=== PATIENT | female | born 1975 | race Caucasian/White ===

== ENCOUNTER 2018-01-29 16:25 | Emergency (ER) | payer MEDICARE, MEDICAID, SELFPAY ==
[2018-01-29 16:29] VITALS: BP 113/74; PULSE 105; RESP 20; TEMP 37; O2SAT 99
--- NOTE | 2018-01-29 16:35 | W.ED.GENAD ---
Discharge Plan Disposition Patient Disposition: STILL A PATIENT Condition: Good Discharge Details Chief Complaint: PsychEval Clinical Impression: Depression, major Primary Care Provider: JAMESON LOMELI ED Provider: Yg Hansen Home Meds and New Rx's Prescriptions: No Action celecoxib [Celebrex] 200 mg Capsule 20 mg PO DAILY RF: 0 gabapentin 600 mg Tablet 600 mg PO TID RF: 0 clonazepam 0.5 mg Tablet 1 tab PO HS PRNRF: 0 hydroxyzine HCl 50 mg Tablet 50 mg PO BID PRNRF: 0 valacyclovir 500 mg Tablet 2 tab PO BID PRNRF: 0 simvastatin 20 mg Tablet 20 mg PO HS RF: 0 lisinopril-hydrochlorothiazide 20-25 mg Tablet 1 tab PO DAILY RF: 0 duloxetine 60 mg Capsule,Delayed Release(Dr/Ec) 60 mg PO BID RF: 0 omeprazole 20 mg Tablet,Delayed Release (Dr/Ec) 20 mg PO DAILY RF: 0 liraglutide [Victoza 3-Barrera] 0.6 mg/0.1 mL (18 mg/3 mL) Pen Injector 1.2 mg subcut DAILY RF: 0 Medical Decision Making <Kennedy Carias MD - Last Filed: 01/29/18 19:26> [facility] Narrative Medical decision making narrative: This is a 42-year-old female who has 1 week of worsening mood disorder and now suicidal ideation. She has mildly dry mucous membranes is able to take liquids by mouth. Her exam is otherwise notable for flat affect and reports of suicidal ideation. Medical screening examination performed and screening laboratories obtained. Patient is medically stable for further evaluation by psychiatry. She reports a history of admissions to [facility], [facility] as well as [facility]. Urinalysis is notable for elevated specific gravity consistent with dehydration. Her laboratories are otherwise reassuring. She is taking liquids by mouth and hydrating. She does not require further medical intervention. At the time of this dictation, patient is awaiting final disposition and placement. Patient was signed out to Dr. Denise pending mental health placement. Please see her note regarding the patient's final disposition. <Vesna Denise DO - Last Filed: 01/30/18 08:15> [facility] Narrative Medical decision making narrative: 01/29/[address] Carias's note for initial presentation, exam and plan. [Sign out comment was not left in chart by Dr. Carias] Patient is a 42-year-old female with a history of anxiety and depression who presents for depressed mood and suicidality for the past week. She has multiple stressors at home, including recent breakup with her with whom she still lives. She reported there are guns in the home. She denied a specific plan. She denied homicidal ideation. Patient was medically cleared. Plan upon endorsement was follow up with [facility] regarding placement. 2139 -- D/w care plan with team rhiannon. [facility] has a bed available but not for transfer tonight. There is also no sitter available so pt will stay in the ED tonight. Gabby from [facility] will be back in the am to resume plan for transfer/placement. 2199 -- Pt is requesting her regular evening meds. Will go over these and discuss pt and order what is appropriate. 2219 --patient states her evening medication would be clonazepam, duloxetine, gabapentin, hydroxyzine, and lisinopril/HCTZ. She is unsure of her dose of clonazepam. Will order a dose of 0.5 mg. She is unsure of her dose of lisinopril/HCTZ, will order the lowest dose of both as her blood pressure was 113/74 on last check. I discussed that this is a significant amount of medications which can cause drowsiness but she states she takes all of these medications at nighttime regularly. She states she does not need her Victoza. Her glucose is 125 on labs. 01/30/18 0800 --no events overnight. Pt has been resting comfortably. Case endorsed to Dr. Hansen to f/u with [facility] this morning regarding placement. <Yg Hansen DO - Last Filed: 01/30/18 11:08> [facility] Narrative Medical decision making narrative: The case is signed out to me by my colleague Dr. Denise. Patient presented here to the emergency department for suicidal ideations and plan. She does not reflect a specific plan but does state when asked if she has a plan that I have guns in my house. Maybe I could use those. Patient has been in the emergency department for the past 18 hours. Multiple attempts have been made to transfer the patient to a psychiatric facility. The only place that is currently open and accepting his daphney, however on her most recent assessment by her mental health advisors the patients history and clinical scenario still has not even been seen or assessed by that facility. Currently the emergency department is very flexible, multiple people in the lobby. For patient safety, a lack of dedicated staff for continued observation of the patient, in the current clinical scenario in the ED, I do feel that it is best to admit the patient for the time being. I discussed the case with Dr. Mcneill, and he has accepted the patient for admission. I have extensively reviewed the treatment plan with the patient. I have addressed all patient concerns at this time. I have also discussed the plan with the admitting physician and they agree with the current assessment and plan and have agreed to assume responsibility for the patient. All parties demonstrate verbal understanding and agreement with our assessment and plan at this time. HPI - General Adult <Kennedy Carias MD - Last Filed: 01/29/18 19:26> General Mode of arrival: ambulatory. Date/Time Provider Initiated Documentation: 01/29/18 16:26. Limitations to Documentation: no limitations. Information obtained by: patient. History of Present Illness 42 year old F presents to the emergency department with the chief complaint of Mood disorder, described as severe, Quality is described as constant, Patient started experiencing this day(s) and it has been constant. No relieving factors improve symptom(s), Other factors that worsen symptoms (Social stressors) . Patient did receive the following treatments prior to arrival, none HPI Narrative: Mood disorder: 42-year-old female presents on referral by mental health services with whom she had an appointment today. She related that she has severe and constant depression with thoughts of suicidality. It is related to breakup with her with whom she still lives. She has many other social stressors. She denies specific plan. She does state there are guns in her home. No thoughts of harming others Related Data Home Medications Medication Instructions Recorded Confirmed celecoxib [Celebrex] 20 mg PO DAILY 01/29/18 01/29/18 clonazepam 1 tab PO HS PRN 01/29/18 01/29/18 duloxetine 60 mg PO BID 01/29/18 01/29/18 gabapentin 600 mg PO TID 01/29/18 01/29/18 hydroxyzine HCl 50 mg PO BID PRN 01/29/18 01/29/18 liraglutide [Victoza 3-Barrera] 1.2 mg SUBCUT DAILY 01/29/18 01/29/18 lisinopril-hydrochlorothiazide 1 tab PO DAILY 01/29/18 01/29/18 omeprazole 20 mg PO DAILY 01/29/18 01/29/18 simvastatin 20 mg PO HS 01/29/18 01/29/18 valacyclovir 2 tab PO BID PRN 01/29/18 01/29/18 Allergies Allergy/AdvReac Type Severity Reaction Status Date / Time hydromorphone [From Dilaudid] Allergy Mild Skin Rash Unverified 01/29/18 22:41 morphine Allergy Mild Skin Rash Unverified 01/29/18 22:41 Review of Systems <Kennedy Carias MD - Last Filed: 01/29/18 19:26> Review of Systems Patient has chronic pain that is unchanged. 8 systems were reviewed and otherwise negative. She will admit to some decreased p.o. intake due to stress Exam <Kennedy Carias MD - Last Filed: 01/29/18 19:26> Const General: cooperative, healthy appearing and well developed Orientation: alert, awake and oriented x3 HENMT Head: normal to inspection, normocephalic and atraumatic Mouth: other (Mucous membranes dry) Eyes General: appearance normal, both eyes and all related structures Eyelids: eyelids normal Pupils: PERRL EOM: EOM intact bilaterally Neck Neck: normal visual inspection, full ROM and no lymphadenopathy Thyroid: thyroid normal Chest Chest: normal inspection of the chest Resp Effort & Inspection: normal respiratory effort and able to speak in complete sentences Auscultation: clear to auscultation bilaterally Cardio Rate: regular rate Rhythm: regular rhythm Heart Sounds: S1 normal and S2 normal GI Palpation: soft and no hepatosplenomegaly Skin Lesions: no lesions Rashes: no rashes Trauma: no lacerations or abrasions Neuro General: alert, awake and oriented x3 Cognition: normal cognition Speech: speech normal Extrem General: full ROM and other (The left wrist is in a removable Velcro wrist splint) Psych Appearance: grossly normal Mental Status: mental status grossly normal Speech and Movement: speech and movement normal Mood: dysthymic mood Affect: other (Flat affect) Attitude: cooperative Sign Out <Kennedy Carias MD - Last Filed: 01/29/18 19:26> Sign Out Data: Sign Out Comment: Case endorsed to Dr. Hansen to f/u with mental health regarding placement. Last updated by Vesna Denise DO at 01/30/18 08:12
--- NOTE | 2018-01-29 16:42 | ED.GENADUL_ITS ---
Discharge Plan Disposition Patient Disposition: STILL A PATIENT Condition: Good Discharge Details Chief Complaint: PsychEval Clinical Impression: Depression, major Primary Care Provider: JAMESON LOMELI ED Provider: Yg Hansen Home Meds and New Rx's Prescriptions: No Action celecoxib [Celebrex] 200 mg Capsule 20 mg PO DAILY RF: 0 gabapentin 600 mg Tablet 600 mg PO TID RF: 0 clonazepam 0.5 mg Tablet 1 tab PO HS PRNRF: 0 hydroxyzine HCl 50 mg Tablet 50 mg PO BID PRNRF: 0 valacyclovir 500 mg Tablet 2 tab PO BID PRNRF: 0 simvastatin 20 mg Tablet 20 mg PO HS RF: 0 lisinopril-hydrochlorothiazide 20-25 mg Tablet 1 tab PO DAILY RF: 0 duloxetine 60 mg Capsule,Delayed Release(Dr/Ec) 60 mg PO BID RF: 0 omeprazole 20 mg Tablet,Delayed Release (Dr/Ec) 20 mg PO DAILY RF: 0 liraglutide [Victoza 3-Barrera] 0.6 mg/0.1 mL (18 mg/3 mL) Pen Injector 1.2 mg subcut DAILY RF: 0 Medical Decision Making <Kennedy Carias MD - Last Filed: 01/29/18 19:26> [facility] Narrative Medical decision making narrative: This is a 42-year-old female who has 1 week of worsening mood disorder and now suicidal ideation. She has mildly dry mucous membranes is able to take liquids by mouth. Her exam is otherwise notable for flat affect and reports of suicidal ideation. Medical screening examination performed and screening laboratories obtained. Patient is medically stable for further evaluation by psychiatry. She reports a history of admissions to [facility] [place], [facility] as well as [facility]. Urinalysis is notable for elevated specific gravity consistent with dehydration. Her laboratories are otherwise reassuring. She is taking liquids by mouth and hydrating. She does not require further medical intervention. At the time of this dictation, patient is awaiting final disposition and placement. Patient was signed out to Dr. Denise pending mental health placement. Please see her note regarding the patient's final disposition. <Vesna Denise DO - Last Filed: 01/30/18 08:15> [facility] Narrative Medical decision making narrative: 01/29/[address] Carias's note for initial presentation, exam and plan. [Sign out comment was not left in chart by Dr. Carias] Patient is a 42-year-old female with a history of anxiety and depression who presents for depressed mood and suicidality for the past week. She has multiple stressors at home, including recent breakup with her with whom she still lives. She reported there are guns in the home. She denied a specific plan. She denied homicidal ideation. Patient was medically cleared. Plan upon endorsement was follow up with [facility] regarding placement. 2139 -- D/w care plan with team rhiannon. [facility] has a bed available but not for transfer tonight. There is also no sitter available so pt will stay in the ED tonight. Gabby from [facility] will be back in the am to resume plan for transfer/placement. 2199 -- Pt is requesting her regular evening meds. Will go over these and discuss pt and order what is appropriate. 2219 --patient states her evening medication would be clonazepam, duloxetine, gabapentin, hydroxyzine, and lisinopril/HCTZ. She is unsure of her dose of clonazepam. Will order a dose of 0.5 mg. She is unsure of her dose of lisinopril/HCTZ, will order the lowest dose of both as her blood pressure was 113/74 on last check. I discussed that this is a significant amount of medications which can cause drowsiness but she states she takes all of these medications at nighttime regularly. She states she does not need her Victoza. Her glucose is 125 on labs. 01/30/18 0800 --no events overnight. Pt has been resting comfortably. Case endorsed to Dr. Hansen to f/u with [facility] this morning regarding placement. <Yg Hansen DO - Last Filed: 01/30/18 11:08> [facility] Narrative Medical decision making narrative: The case is signed out to me by my colleague Dr. Denise. Patient presented here to the emergency department for suicidal ideations and plan. She does not reflect a specific plan but does state when asked if she has a plan that I have guns in my house. Maybe I could use those. Patient has been in the emergency department for the past 18 hours. Multiple attempts have been made to transfer the patient to a psychiatric facility. The only place that is currently open and accepting his daphney, however on her most recent assessment by her mental health advisors the patients history and clinical scenario still has not even been seen or assessed by that facility. Currently the emergency department is very flexible, multiple people in the lobby. For patient safety, a lack of dedicated staff for continued observation of the patient, in the current clinical scenario in the ED, I do feel that it is best to admit the patient for the time being. I discussed the case with Dr. Mcneill, and he has accepted the patient for admission. I have extensively reviewed the treatment plan with the patient. I have addressed all patient concerns at this time. I have also discussed the plan with the admitting physician and they agree with the current assessment and plan and have agreed to assume responsibility for the patient. All parties demonstrate verbal understanding and agreement with our assessment and plan at this time. HPI - General Adult <Kennedy Carias MD - Last Filed: 01/29/18 19:26> General Mode of arrival: ambulatory . Date/Time Provider Initiated Documentation: 01/29/18 16:26 . Limitations to Documentation: no limitations . Information obtained by: patient . History of Present Illness 42 year old F presents to the emergency department with the chief complaint of Mood disorder, described as severe, Quality is described as constant, Patient started experiencing this day(s) and it has been constant. No relieving factors improve symptom(s), Other factors that worsen symptoms ( Social stressors) . Patient did receive the following treatments prior to arrival, none HPI Narrative: Mood disorder: 42-year-old female presents on referral by mental health services with whom she had an appointment today. She related that she has severe and constant depression with thoughts of suicidality. It is related to breakup with her with whom she still lives. She has many other social stressors. She denies specific plan. She does state there are guns in her home. No thoughts of harming others Related Data Home Medications Medication Instructions Recorded Confirmed celecoxib [Celebrex] 20 mg PO DAILY 01/29/18 01/29/18 clonazepam 1 tab PO HS PRN 01/29/18 01/29/18 duloxetine 60 mg PO BID 01/29/18 01/29/18 gabapentin 600 mg PO TID 01/29/18 01/29/18 hydroxyzine HCl 50 mg PO BID PRN 01/29/18 01/29/18 liraglutide [Victoza 3-Barrera] 1.2 mg SUBCUT DAILY 01/29/18 01/29/18 lisinopril-hydrochlorothiazide 1 tab PO DAILY 01/29/18 01/29/18 omeprazole 20 mg PO DAILY 01/29/18 01/29/18 simvastatin 20 mg PO HS 01/29/18 01/29/18 valacyclovir 2 tab PO BID PRN 01/29/18 01/29/18 Allergies Allergy/AdvReac Type Severity Reaction Status Date / Time hydromorphone [From Dilaudid] Allergy Mild Skin Rash Unverified 01/29/18 22:41 morphine Allergy Mild Skin Rash Unverified 01/29/18 22:41 Review of Systems <Kennedy Carias MD - Last Filed: 01/29/18 19:26> Review of Systems Patient has chronic pain that is unchanged. 8 systems were reviewed and otherwise negative. She will admit to some decreased p.o. intake due to stress Exam <Kennedy Carias MD - Last Filed: 01/29/18 19:26> Const General: cooperative, healthy appearing and well developed Orientation: alert, awake and oriented x3 HENMT Head: normal to inspection, normocephalic and atraumatic Mouth: other (Mucous membranes dry) Eyes General: appearance normal, both eyes and all related structures Eyelids: eyelids normal Pupils: PERRL EOM: EOM intact bilaterally Neck Neck: normal visual inspection, full ROM and no lymphadenopathy Thyroid: thyroid normal Chest Chest: normal inspection of the chest Resp Effort & Inspection: normal respiratory effort and able to speak in complete sentences Auscultation: clear to auscultation bilaterally Cardio Rate: regular rate Rhythm: regular rhythm Heart Sounds: S1 normal and S2 normal GI Palpation: soft and no hepatosplenomegaly Skin Lesions: no lesions Rashes: no rashes Trauma: no lacerations or abrasions Neuro General: alert, awake and oriented x3 Cognition: normal cognition Speech: speech normal Extrem General: full ROM and other (The left wrist is in a removable Velcro wrist splint) Psych Appearance: grossly normal Mental Status: mental status grossly normal Speech and Movement: speech and movement normal Mood: dysthymic mood Affect: other (Flat affect) Attitude: cooperative Sign Out <Kennedy Carias MD - Last Filed: 01/29/18 19:26> Sign Out Data: Sign Out Comment: Case endorsed to Dr. Hansen to f/u with mental health regarding placement. Last updated by Vesna Denise DO at 01/30/18 08:12
--- NOTE | 2018-01-29 16:47 | PDOC.MHCN ---
Date of service: 01/29/18 Time of Service: 16:47 Presenting Issue: *How did they arrive here at ER and why did they come: Patient arrived at the ER via private vehicle after meeting with her counselor and a [facility] Emergency Clinician. Patient was brought to the ER for active SI. Precipitating Factors: *Assessment of Safety SI/HI (address delusions if pertaining to the SI/HI) Patient is actively suicidal and states that if she goes home she will find something to kill herself with. She does not have a specific plan. Patient does state that there are guns in the home available to her. Patient has had previous psychiatric hospitalizations at [facility], and [facility]. Last hospitalization was approximately three years ago according to the patient. Disposition: *Behavior: Patient is sitting on the hospital bed *Eye Contact: Intermittent - Frequently looking at the floor *Mood: Calm/Sad *Affect: Flat *Appetite: None *Sleep (trouble falling/staying asleep): Patient states that she is not able to sleep Plan: Patient will remain at the hospital until a bed at a mental health treatment facility is available. Referrals will be sent as soon as lab results are available.
--- NOTE | 2018-01-29 16:57 | PDOC.MHCN_ITS ---
Date of service: 01/29/18 Time of Service: 16:47 Presenting Issue: *How did they arrive here at ER and why did they come: Patient arrived at the ER via private vehicle after meeting with her counselor and a [facility] Emergency Clinician. Patient was brought to the ER for active SI. Precipitating Factors: *Assessment of Safety SI/HI (address delusions if pertaining to the SI/HI) Patient is actively suicidal and states that if she goes home she will find something to kill herself with. She does not have a specific plan. Patient does state that there are guns in the home available to her. Patient has had previous psychiatric hospitalizations at [facility], and [facility]. Last hospitalization was approximately three years ago according to the patient. Disposition: *Behavior: Patient is sitting on the hospital bed *Eye Contact: Intermittent - Frequently looking at the floor *Mood: Calm/Sad *Affect: Flat *Appetite: None *Sleep (trouble falling/staying asleep): Patient states that she is not able to sleep Plan: Patient will remain at the hospital until a bed at a mental health treatment facility is available. Referrals will be sent as soon as lab results are available.
[2018-01-29 17:04] LABS: Abs Immature Grans 0.01 k/cumm (0.0-0.09); Absolute Basophil Count 0.04 k/cumm (0.0-0.2); Absolute Eosinophil Count 0.26 k/cumm (0.0-0.7); Absolute Lymphocyte Count 2.76 k/cumm (1.2-3.4); Absolute Monocyte Count 0.46 k/cumm (0.11-0.7); Absolute Neutrophil Count 4.98 k/cumm (1.2-6.7); Basophils % 0.5; Eosinophils % 3.1; HCT 43.9 % (36.0-46.0); HGB 13.7 g/dL (12.0-15.5); Immature Grans % 0.1; Lymphocytes % 32.4; Mean Corp. HGB Concentration 31.2 g/dL (32.0-36.0); Mean Corpuscular Hemoglobin 26.3 pg (27.0-33.0); Mean Corpuscular Volume 84.4 fL (80-95); Mean Platelet Volume 10.3 fL (8.0-11.0); Monocytes % 5.4; Neutrophils % 58.5; Platelet Count 223 x1000/uL (130-400); RBC Distribution Width 14.4 % (11.7-14.6); White Blood Cell Count 8.51 k/cumm (4.4-10.8)
[2018-01-29 17:19] LABS: Bilirubin Negative (Negative); Blood Small (Negative); Clarity Clear; Glucose Negative (Negative); Ketones Negative (Negative); Leukocyte Esterase Negative (Negative); Nitrite Negative (Negative); Specific Gravity >= 1.030 (1.005-1.025); Urobilinogen 0.2 EU/dL (Up TO 0.2)
[2018-01-29 17:24] LABS: ALT 52 U/L (12-78); AST 70 U/L (15-37); Albumin 3.7 g/dL (3.4-5.0); Alkaline Phosphatase 70 U/L (46-116); Anion Gap 7.4 mmol/L (3-11); BUN 19 mg/dL (7-18); Bilirubin, Total 0.3 mg/dL (0.2-1.0); CO2 29.6 mmol/L (21.0-32.0); CREATININE 0.83 mg/dL (0.55-1.02); Calcium 9.7 mg/dL (8.5-10.1); Chloride 101 mmol/L (98-107); Glucose 125 mg/dL (70-100); Potassium 3.7 mmol/L (3.5-5.1); Sodium 138 mmol/L (136-145); TSH 2.12 uIU/mL (0.358-3.74); Total Protein 8.1 g/dL (6.4-8.2)
[2018-01-29 17:28] LABS: Salicylate < 2.8 mg/dL (2.8-20.0)
[2018-01-29 17:29] LABS: *AMPHETAMINES SCREEN URINE Negative (Negative); *BARBITURATES SCREEN URINE Negative (Negative); *BENZODIAZEPINES SCREEN URINE Negative (Negative); Cannabinoids THC Negative (Negative); Cocaine Screen,Urine Negative (Negative); METHADONE URINE SCREEN Negative (Negative); OPIATES URINE SCREEN Negative (Negative)
[2018-01-29 17:38] LABS: Tricyclic Antidepressants POSITIVE (Negative)
[2018-01-29 17:43] LABS: Acetaminophen < 2 ug/mL (10-30)
[2018-01-29 17:51] LABS: Bacteria Moderate HPF (Negative); C & S Indicated? No/Sq. Contamination; Casts Negative LPF (Negative); Crystals Negative HPF (Negative); Epithelial Cells Many HPF (Negative); Mucus Negative (Negative); RBC Negative (0-2)
[2018-01-29 18:15] LABS: ETHANOL BLOOD < 3.0 mg/dL (<3)
--- NOTE | 2018-01-29 22:11 | CMPROGNOTE_ITS ---
- If Service Date Differs Date of service: 01/29/18 Time of Service: 22:10 Care Management Progress Note CM met with Angela at the bedside to complete assessment. Angela is admitted to the ED with suicidal ideation. She states she is disabled due to a work related injury about 5 years ago. She receives SSDI for her disability. She does have a history of chronic pain. Her primary care provider is at [facility]. Angela, has three sons her youngest is 17. She is wheelchair dependent, she states she can stand and pivot. She has Medicaid highest needs. Her community development specialist is Ana Dodd through [facility]. Angela is recently from her spouse he is her primary caregiver and receives [employer] funds to care for her. Angela and her spouse continue to live together, he is planning on moving out when her youngest son Gab turns 18 years of age. Angela met with her new therapist today in [place] and felt that she was able to be honest with her related to her thoughts of SI. She states she has been under a lot of stress including finding affordable housing and denial of her workman?s comp case. Angela would like to be transferred to psychiatric facility when a bed becomes available. MAX reviewed the safety plan with Angela and expectation while awaiting bed availability. Angela states she is thankful that everyone has been kind to her in the ED and she feels safe and cared for here. Angela request that she be accompanied by female one on one staff when she needs to use the restroom. Angela is VOLUNTARY FOR INPATIENT PSYCHIATRIC STABILIZATION. She has been cooperative and appropriate in all interactions since arriving at [facility]; she has demonstrated appropriate coping and communication skills, has articulated her needs and concerns and is fully engaged during staff interactions. Safety plan has been established with patient, and care team, to adhere to patient goals, identify restrictions based on behavioral status, address nutrition, and determine allowed personal belongings, tools for hygiene and personal care. Determine level of activity including ambulation, level of supervision, visitors , and determine privileges based on behaviors and level of engagement by pt. Huddle Participants: ELMER Khalil supervisor tumbling and rolling, ELMER Shukla primary nurse, Gabby Saab, [facility] [address], ELMER Penn, CM Time and Date: 209901/30/18 SAFETY PLAN: [facility] room 5 1. Will remain on suicide precautions and in paper clothes. 2. Will remain in room under [facility] one[facility]one staff at all times provided by VADIM, MALACHI supervisor telephone information. To be coordinated by RN supervisor tumbling and rolling. 3. May have paper cups, plates, finger foods as well as a metal spoon with which to eat meals. [facility] staff will be responsible for accounting of utensils after meals. 4. Follow [facility] Management of the Admitted Behavioral Health Patient policy 5. Comfort bath system only. 6. Angela may have her cell phone at the discretion of the care team. (CM reviewed this with Pt and she agrees.) Angela also has her wheelchair in the room. 7. Only visitors are the patient three sons at the discretion of primary care team. 8. Angela may have television if one becomes available in the room. [facility] will be coordinating placement at inpatient facility, last updates included the following: Katrina is evaluating Pt for possible admission on Thursday. fly worker will plan to return to the hospital in the morning and continue to contact psychiatric facilities. Patient is currently voluntarily at [facility] and seeking inpatient admission when a bed becomes available. [facility] Frontline Ad Operations Intern will continue seeking placement. Please contact the Airline Security Representative Adventure Therapist ([phone]) and [facility] Ad Operations Intern ([phone]) for any needed changes in the Safety Plan. Safety plan has been provided to interdepartmental care team including Clinical Coordinator, Nursing Facility Maintenance Worker.
[2018-01-29] MEDS: DULoxetine 30 MG CAP 60 MG PO (23:18)
[2018-01-29] MEDS: clonazePAM 0.5 MG TAB PO (23:18)
[2018-01-29] MEDS: hydrOXYzine HCL 50 MG TAB PO (23:18)
[2018-01-29] MEDS: Gabapentin 400 MG CAP 1200 MG PO (23:19)
[2018-01-29] MEDS: Lisinopril 10 MG TAB PO (23:19)
--- NOTE | 2018-01-30 10:32 | PDOC.MHCN ---
Presenting Issue: *How did they arrive here at ER and why did they come: Sanna Muniz, [facility] daytime behavioral health clinician, brings patient to the ER due to worsening depression and active suicidal ideation. Precipitating Factors: *Assessment of Safety SI/HI (address delusions if pertaining to the SI/HI) Patient continues to report suicidal thoughts and says she is not safe to return home. She reports being very tired this morning and not having slept much last night. While she is pleasant and she does answer my questions, she minimally engages with me as she is sleepy. Disposition: *Behavior: Calm. *Eye Contact: Poor, her eyes are closed during most of today's evaluation. *Mood: Depressed. *Affect: Flat. *Appetite: Poor per patient's report. *Sleep (trouble falling/staying asleep): Poor. Plan: [facility] is the only [facility] with available beds at this time. A referral was faxed to them for review last evening but as of 10:40 am this morning, a decision on whether or not to accept patient for admission still has not been made. Plan is to continue to seek a psych placement for patient who will remain at [facility] until a bed can be secured for her.
--- NOTE | 2018-01-30 10:43 | PDOC.MHCN_ITS ---
Presenting Issue: *How did they arrive here at ER and why did they come: Sanna Muniz, [facility] daytime licensed clinician, brings patient to the ER due to worsening depression and active suicidal ideation. Precipitating Factors: *Assessment of Safety SI/HI (address delusions if pertaining to the SI/HI) Patient continues to report suicidal thoughts and says she is not safe to return home. She reports being very tired this morning and not having slept much last night. While she is pleasant and she does answer my questions, she minimally engages with me as she is sleepy. Disposition: *Behavior: Calm. *Eye Contact: Poor, her eyes are closed during most of today's evaluation. *Mood: Depressed. *Affect: Flat. *Appetite: Poor per patient's report. *Sleep (trouble falling/staying asleep): Poor. Plan: [facility] is the only [facility] with available beds at this time. A referral was faxed to them for review last evening but as of 10:40 am this morning, a decision on whether or not to accept patient for admission still has not been made. Plan is to continue to seek a psych placement for patient who will remain at [facility] until a bed can be secured for her.
[2018-01-30] MEDS: Gabapentin 400 MG CAP 1200 MG PO (12:00)
[2018-01-30 15:13] VITALS: BP 123/74; PULSE 96; RESP 16; TEMP 36.7; O2SAT 94
== END 2018-01-30 15:13 | disposition still patient (30) ==
PROVIDERS: Emergency Medicine; Emergency Provider Student in an Organized Health Care Education/Training Program; PCP Nurse Practitioner Family
DX: F32.9 Major depressive disorder, single episode, unspecified (principal); R45.851 Suicidal ideations; E86.0 Dehydration
CPT/HCPCS: 80053; 80307; 81025; 99285; 80320; 80329; 81003; 81015; 84443; 85025; 99284; J3490

== ENCOUNTER 2018-02-09 15:21 | Outpatient (REF) | payer MEDICARE, MEDICAID, SELFPAY ==
[2018-02-09 21:55] LABS: Cholesterol 197 mg/dL (50-200); HDL Cholesterol 55 mg/dL (40-60); LDL CHOLESTEROL 120 mg/dL (<100); TSH (W/Ref FT4) 1.27 uIU/mL (0.358-3.74); Triglyceride 135 mg/dL (30-150); Vitamin B12 355 pg/mL (193-986)
== END 2018-02-09 15:41 ==
LOC: NCHCN 15:21
PROVIDERS: PCP Nurse Practitioner Family; Visit Provider Nurse Practitioner Family
DX: F41.8 Other specified anxiety disorders (principal); G90.8 Other disorders of autonomic nervous system; E78.5 Hyperlipidemia, unspecified; R06.83 Snoring; E53.8 Deficiency of other specified B group vitamins; E05.90 Thyrotoxicosis, unspecified without thyrotoxic crisis or storm
CPT/HCPCS: 80061; 83721; 82607; 84443